=== PATIENT | male | born 1980 | race Caucasian/White ===

== ENCOUNTER 2019-01-06 11:20 | Emergency (ER) | payer BC ==
--- NOTE | 2019-01-06 12:03 | CT ---
CT HEAD NONCONTRAST DATE: 01/06/19 HISTORY: TIA. Facial pain. FINDINGS: No comparison. There is no evidence of acute intracranial hemorrhage or infarct. The ventricles appear normal in siz e, shape, and position. There is no mass effect or shift of midline structures. Visualized paranasal sinuses remain well aerated. IMPRESSION: No acute intracranial abnormalities are demonstrated. POS: CET
[2019-01-06 12:22] LABS: #Basophils 0.1 thou/uL (0.0-0.2); #Eosinphils 0.2 thou/uL (0.0-0.7); #Lymphocytes 2.1 thou/uL (1.20-3.40); #Monocytes 0.4 thou/uL (0.11-0.59); #Neutrophils 3.2 thou/uL (1.40-6.50); %Basophils 1.9 % (0.0-1.0); %Eosinophils 3.8 % (0.0-10.0); %Lymphocytes 35.2 % (21.0-51.0); %Monocytes 6.8 % (0.0-10.0); %Neutrophils 52.4 % (42.0-75.0); Hemoglobin 15.8 g/dL (14.0-18.0); Mean Corpuscular HGB CONC 34.5 g/dL (32.0-36.0); Mean Corpuscular Hemoglobin 30.5 pg (27.0-31.0); Mean Corpuscular Volume 88.2 fL (78.0-98.0); Mean Platelet Volume 8.7 fL (7.4-10.4); Platelet Count 192 thou/uL (130-400); RBC Distribution Width 11.1 % (11.5-14.5); Red Blood Cell (RBC) Count 5.17 mill/uL (4.70-6.10); White Blood Cell (WBC) Count 6.1 thou/uL (4.8-10.8)
[2019-01-06 12:44] LABS: ALT (SGPT) 40 U/L (8-55); AST (SGOT) 21 U/L (5-34); Albumin 4.3 g/dL (3.5-5.0); Alkaline Phosphatase 74 U/L (40-150); Anion Gap 12 mmol/L (10-20); BUN (Urea Nitrogen) 11 mg/dL (8.9-20.6); Bilirubin, Total 0.8 mg/dL (0.2-1.2); Calc. Creatinine Clearance 0 mL/min (70-130); Calcium 9.5 mg/dL (7.8-10.44); Carbon Dioxide 25 mmol/L (22-29); Chloride 102 mmol/L (98-107); Estimated GFR-MDRD Greater than 90; Globulin 3.3 g/dL (2.4-3.5); Glucose 183 mg/dL (70-105); Potassium 3.9 mmol/L (3.5-5.1); Protein, Total 7.6 g/dL (6.0-8.3); Sodium 135 mmol/L (136-145)
[2019-01-06] MEDS ORDERED: Metoclopramide HCl 10 MG/2 ML VIAL ONE (13:54)
[2019-01-06] MEDS ORDERED: Ketorolac Tromethamine 30 MG/ML VIAL ONE (15:17)
[2019-01-06] MEDS ORDERED: Acetaminophen 500 MG TAB ONE (15:17)
== END 2019-01-06 16:53 | disposition home or self-care (01) ==
LOC: ERS 11:20
DX: R51 Headache (principal); I10 Essential (primary) hypertension; G47.30 Sleep apnea, unspecified; E11.9 Type 2 diabetes mellitus without complications
CPT/HCPCS: 36415; 70450; 80053; 84484; 85025; 93005; 96365; 96375; J1885; J2765

== ENCOUNTER 2019-08-01 04:39 | Emergency (ER) | payer BC ==
[2019-08-01] MEDS ORDERED: Lidocaine 1% (PF) 30 ML VIAL ONE (06:33)
[2019-08-01] MEDS ORDERED: Adacel (T-DAP) 0.5 ML SYRINGE ONE (06:54)
== END 2019-08-01 08:42 | disposition home or self-care (01) ==
LOC: ERS 04:39
DX: S01.21XA Laceration without foreign body of nose, initial encounter (principal); G47.30 Sleep apnea, unspecified; E11.9 Type 2 diabetes mellitus without complications; I10 Essential (primary) hypertension; W01.0XXA Fall on same level from slipping, tripping and stumbling without subsequent striking against object, initial encounter
CPT/HCPCS: 12013; 90471; 90715; J2001

== ENCOUNTER 2019-08-06 08:54 | Emergency (ER) | payer BC | END 2019-08-06 09:19 | disposition home or self-care (01) | LOC: ERS 08:54 | DX: S01.21XD Laceration without foreign body of nose, subsequent encounter (principal); E11.9 Type 2 diabetes mellitus without complications; I10 Essential (primary) hypertension; G47.30 Sleep apnea, unspecified; W01.0XXD Fall on same level from slipping, tripping and stumbling without subsequent striking against object, subsequent encounter ==